=== PATIENT | female | born 1990 ===

== ENCOUNTER 2017-06-18 10:34 | Emergency (ER) | payer SELFPAY ==
[2017-06-18 10:34] VITALS: BMI 29.2
[2017-06-18 11:02] VITALS: RESP 16; TEMP 98.7
--- NOTE | 2017-06-18 11:19 | ED PDOC ---
Arrival/HPI - General Chief Complaint: Eye Problem Time Seen by Provider: 06/18/17 11:02 Historian: Patient - History of Present Illness Narrative History of Present Illness (Text): you were treated in the ED today for being at work and noted about 1 hour a ago a vision change like a shade going over the eye with blurry vision which has improved at this time but otherwise without any nausea/vomiting/headache/ dizziness/difficulty breathing/chest pain/abdomen pain/numbness/tingling/loss of limb function/pain with urination. 06/18/17 11:17 Time/Duration: 1 hour Symptom Onset: Sudden Symptom Course: Improving Activities at Onset: Rest Past Medical History - Provider Review Nursing Documentation Reviewed: Yes - Travel History Have you recently traveled outside [place] w/in the past 3 mons?: No - Past History Past History: No Previous - Infectious Disease Hx of Infectious Diseases: None - Tetanus Immunization Tetanus Immunization: Unknown - Cardiac Hx Cardiac Disorders: No - Pulmonary Hx Respiratory Disorders: No - Neurological Hx Neurological Disorder: No - HEENT Hx HEENT Disorder: No - Renal Hx Renal Disorder: No - Endocrine/Metabolic Hx Endocrine Disorders: No - Hematological/Oncological Hx Blood Transfusions: No Hx Blood Transfusion Reaction: No - Integumentary Hx Dermatological Disorder: No - Musculoskeletal/Rheumatological Hx Falls: No - Gastrointestinal Hx Gall Bladder Disease: Yes (Gallstones) - Psychiatric Hx Substance Use: No - Past Surgical History Past Surgical History: No Previous - Anesthesia Hx Anesthesia: No Family/Social History - Physician Review Nursing Documentation Reviewed: Yes Family/Social History: No Known Family HX Smoking Status: Never Smoked Hx Alcohol Use: No Hx Substance Use: No Hx Substance Use Treatment: No Allergies/Home Meds Allergies/Adverse Reactions: Allergies No Known Allergies Allergy (Verified 02/16/16 11:17) Home Medications: Home Meds Medication Instructions Recorded Confirmed No Known Home Med 06/18/17 06/18/17 Review of Systems - Review of Systems Constitutional: Normal Eyes: Vision Changes ENT: Normal Respiratory: Normal Cardiovascular: Normal Gastrointestinal: Normal Genitourinary Female: Normal Musculoskeletal: Normal Skin: Normal Neurological: Normal, Other (see eyes) Endocrine: Normal Hemo/Lymphatic: Normal Psychiatric: Normal Physical Exam Vital Signs Reviewed: Yes Vital Signs Temp Pulse Resp BP Pulse Ox 06/18/17 12:05 70 16 129/70 100 01/20/18 10:53 98.7 F 72 16 131/83 99 Temperature: Afebrile Blood Pressure: Hypertensive Pulse: Regular Respiratory Rate: Normal Appearance: Positive for: Well-Appearing, Non-Toxic, Comfortable Pain Distress: None Mental Status: Positive for: Alert and Oriented X 3 - Systems Exam Head: Present: Atraumatic, Normocephalic Pupils: Present: PERRL, Other (vision: + peripheral vision acuity, right eye 20/ 25, and left eye 20/20, without foriegn body, pink, no corneal injury, good accommodation) Extroacular Muscles: Present: EOMI Conjunctiva: Present: Normal Ears: Present: Normal Mouth: Present: Moist Mucous Membranes Pharnyx: Present: Normal Nose (External): Present: Atraumatic Nose (Internal): Present: Normal Inspection Neck: Present: Normal Range of Motion Respiratory/Chest: Present: Clear to Auscultation, Good Air Exchange Cardiovascular: Present: Regular Rate and Rhythm Abdomen: No: Tenderness, Distention, Normal Bowel Sounds, Peritoneal Signs, Rebound, Guarding, McBurney's Point Tender, Rovsing's Sign Present, Hernias, Feeding Tubes, Ostomy Tubes, Mass/Organomegaly, Scars, Other Back: Present: Normal Inspection Upper Extremity: Present: Normal Inspection Lower Extremity: Present: Normal Inspection Neurological: Present: GCS=15, CN II-XII Intact, Speech Normal, Motor Func Grossly Intact Skin: Present: Warm, Normal Color Psychiatric: Present: Alert, Oriented x 3, Normal Insight, Normal Concentration Medical Decision Making ED Course and Treatment: you were treated in the ED today for being at work and noted about 1 hour a ago a vision change like a shade going over the eye with blurry vision which has improved at this time but otherwise without any trauma/injury/nausea/vomiting/ headache/dizziness/difficulty breathing/chest pain/abdomen pain/numbness/ tingling/loss of limb function/pain with urination. You were otherwise breathing easily, smiling and laughing with ED nurse, good strength/sensation, walking easily, clear lungs, no abdomen tenderness, vision: positive peripheral vision acuity, right eye 20/25, and left eye 20/20, without foreign body, pink, no corneal injury, good accommodation; no fever temp 98.7, stable heart rate 72 , stable breathing rate 16, excellent oxygen level 99% room air, elevated blood pressure 131/83 which we recommend repeat in 2-3 days primary care office to determine further treatment, urine test negative, radiology CT head no acute, observation done in the ED with improvement, counselled to monitor vision and thus discharged home. 1. Recommend follow-up primary care Dr. Somers 2 days to review symptoms, referral to neurology/neurosurgery for consideration of pitutary gland evaluation which appeart normal on CT head today but to ensure no complications/cancer development and ophthalmology clinic for overall symptoms. 2. If any worsening pain, fever, chills, nausea, vomiting, difficulty breathing, numbness, change or worsening vision, loss of limb function, pain with urination or any medical condition then return to the ED. PROCEDURE: CT HEAD WITHOUT CONTRAST. Dictator : Latha Ordaz MD Report Date : 06/18/2017 13:04:43 IMPRESSION: Unremarkable CT scan of the brain without contrast. If symptoms persist MRI would be suggested for further evaluation. 06/18/17 13:38 - RAD Interpretation Radiology Orders: 06/18/17 11:15 HEAD W/O CONTRAST [CT] Stat Disposition/Present on Arrival - Present on Arrival Any Indicators Present on Arrival: No History of DVT/PE: No History of Uncontrolled Diabetes: No Urinary Catheter: No History of Decub. Ulcer: No History Surgical Site Infection Following: None - Disposition Have Diagnosis and Disposition been Completed?: Yes Diagnosis: Blurry vision Disposition: HOME/ ROUTINE Disposition Time: 13:40 Patient Plan: Discharge Condition: IMPROVED Additional Instructions: you were treated in the ED today for being at work and noted about 1 hour a ago a vision change like a shade going over the eye with blurry vision which has improved at this time but otherwise without any trauma/injury/nausea/vomiting/ headache/dizziness/difficulty breathing/chest pain/abdomen pain/numbness/ tingling/loss of limb function/pain with urination. You were otherwise breathing easily, smiling and laughing with ED nurse, good strength/sensation, walking easily, clear lungs, no abdomen tenderness, vision: positive peripheral vision acuity, right eye 20/25, and left eye 20/20, without foreign body, pink, no corneal injury, good accommodation; no fever temp 98.7, stable heart rate 72 , stable breathing rate 16, excellent oxygen level 99% room air, elevated blood pressure 131/83 which we recommend repeat in 2-3 days primary care office to determine further treatment, urine test negative, radiology CT head no acute, observation done in the ED with improvement, counselled to monitor vision and thus discharged home. 1. Recommend follow-up primary care Dr. Somers 2 days to review symptoms, referral to neurology/neurosurgery for consideration of pitutary gland evaluation which appeart normal on CT head today but to ensure no complications/cancer development and ophthalmology clinic for overall symptoms. 2. If any worsening pain, fever, chills, nausea, vomiting, difficulty breathing, numbness, change or worsening vision, loss of limb function, pain with urination or any medical condition then return to the ED. Forms: [employer] (Sinhala)
--- NOTE | 2017-06-18 13:06 | CT ---
PROCEDURE: CT HEAD WITHOUT CONTRAST. HISTORY: 27yoF, vision change COMPARISON: None available. TECHNIQUE: Axial computed tomography images were obtained through the head/brain without intravenous contrast. Radiation dose: Total exam DLP = 889 mGy-cm. This CT exam was performed using one or more of the following dose reduction techniques: Automated exposure control, adjustment of the mA and/or kV according to patient size, and/or use of iterative reconstruction technique. FINDINGS: HEMORRHAGE: No intracranial hemorrhage. BRAIN: No mass effect or edema. No atrophy or chronic microvascular ischemic changes. VENTRICLES: Unremarkable. No hydrocephalus. CALVARIUM: Unremarkable. PARANASAL SINUSES: Unremarkable as visualized. No significant inflammatory changes. MASTOID AIR CELLS: Unremarkable as visualized. No inflammatory changes. OTHER FINDINGS: Pituitary gland appears to be normal in size. No tonsillar ectopia is noted on the sagittal images. No significant decreased density is seen in the white matter tracts. No retro-orbital masses are noted. IMPRESSION: Unremarkable CT scan of the brain without contrast. If symptoms persist MRI would be suggested for further evaluation.
[2017-06-18 14:26] VITALS: BP 126/71; PULSE 71; O2SAT 98
== END 2017-06-18 14:15 | disposition home or self-care (01) ==
LOC: ED 10:34
DX: H53.8 Other visual disturbances (principal)